=== PATIENT | female | born 1970 | race Caucasian/White ===

== ENCOUNTER → 2017-01-30 | Day surgery (SDC) | payer BC ==
[~2017-01-30] MED LIST: LIDOCAINE HCL 1% MPF SOL ONE; PROPOFOL 500 MG/50 ML EMU IV ONE
[2017-01-30 10:30] VITALS: BP 102/68; PULSE 73; RESP 18; TEMP 97.6; O2SAT 69
== END | disposition home or self-care (01) ==
LOC: SURG 08:23
PROVIDERS: ATTEND Surgery
DX: Z80.0 Family history of malignant neoplasm of digestive organs (principal); Z83.71 Family history of colonic polyps; R19.4 Change in bowel habit
CPT/HCPCS: 45378; J2001; J2704

== ENCOUNTER 2017-04-26 21:50 | Emergency (ER) | payer BC ==
[2017-04-26] MEDS ORDERED: SUMATRIPTAN SUCCINATE 6 MG/0.5 ML SOL SC ONE ×2 (22:15→22:21)
[2017-04-26 22:29] VITALS: BP 132/84; PULSE 79; RESP 18; TEMP 97.9; O2SAT 100
[2017-04-26] MEDS ORDERED: METOCLOPRAMIDE HYDROCHLORIDE 5 MG/ML SOL IV ONE (22:30)
[2017-04-26] MEDS ORDERED: KETOROLAC TROMETHAMINE 30 MG/ML SOL IV ONE (22:30)
[2017-04-26] MEDS ORDERED: SODIUM CHLORIDE 0.9% 1000ML 1,000 ML IV NR (22:30)
[2017-04-26] MEDS ORDERED: KETOROLAC TROMETHAMINE 30 MG/ML SOL ONE (22:42)
[2017-04-26] MEDS ORDERED: METOCLOPRAMIDE HYDROCHLORIDE 5 MG/ML SOL ONE (22:42)
[2017-04-26] MEDS ORDERED: SODIUM CHLORIDE 0.9% FLUSH 10 ML SOL IV PRN (22:51)
== END 2017-04-26 23:37 | disposition home or self-care (01) ==
LOC: ED 21:50
DX: G43.909 Migraine, unspecified, not intractable, without status migrainosus (principal)
CPT/HCPCS: 99284 ×2; J1885; J2765; J3030

== ENCOUNTER 2017-08-23 20:56 | Emergency (ER) | payer BC ==
[2017-08-23] MEDS ORDERED: NITROGLYCERIN 0.4 MG TAB SL PRN (21:04)
[2017-08-23] MEDS ORDERED: ASPIRIN 81 MG CHEWABLE CTB PO STA (21:04)
[2017-08-23] MEDS ORDERED: SODIUM CHLORIDE 0.9% FLUSH 10 ML SOL IV PRN (21:04)
[2017-08-23] MEDS ORDERED: ASPIRIN 81 MG CHEWABLE CTB ONE (21:05)
[2017-08-23] MEDS ORDERED: NITROGLYCERIN 0.4 MG TAB SL ONE (21:05)
[2017-08-23 21:07] LABS: BASOPHILS % (AUTO) 2 % (0-3); EOSINOPHILS % (AUTO) 4 % (0-9); HEMATOCRIT 41 % (35-47); MEAN CORPUSCULAR HGB CONC 34.9 gm/dl (32.0-36.0); MEAN CORPUSCULAR VOLUME 85 fL (81-99); MONOCYTES % (AUTO) 8.2 % (0-12); NEUTROPHILS % (AUTO) 47.9 % (37-80)
[2017-08-23 21:29] LABS: ALBUMIN 3.8 gm/dl (3.4-5.0); ALT 58 IU/L (14-63); CALCIUM 8.8 mg/dl (8.5-10.1); GLOM FILT RATE 60 mL/min (>60); SODIUM 130 mMol/L (136-145)
[2017-08-23] MEDS ORDERED: SODIUM CHLORIDE 0.9% 1000ML 1,000 ML IV ONE (21:37)
[2017-08-23] MEDS ORDERED: NOVOLOG FLEXPEN SC ONE ×2 (21:39→21:40)
[2017-08-23] MEDS ORDERED: LORAZEPAM 2 MG/ML SOL IV ONE (21:47)
[2017-08-23 21:52] VITALS: TEMP 98.4
[2017-08-23] MEDS ORDERED: AZITHROMYCIN 250 MG TAB PO ONE ×2 (21:53)
[2017-08-23] MEDS ORDERED: AZITHROMYCIN 250 MG TAB ONE (22:07)
[2017-08-23] MEDS ORDERED: LORAZEPAM 2 MG/ML SOL ONE (22:09)
[2017-08-23] MEDS ORDERED: NOVOLOG FLEXPEN SC SCH (22:30)
[2017-08-23] MEDS ORDERED: INSULIN GLARGINE, RECOMBINAN 100 U/ML SOL SC ONE ×2 (23:12→23:15)
[2017-08-23 23:29] VITALS: BP 130/68; PULSE 96; RESP 20; O2SAT 96
== END 2017-08-23 23:24 | disposition home or self-care (01) ==
LOC: ED 20:56
DX: R07.89 Other chest pain (principal); E11.65 Type 2 diabetes mellitus with hyperglycemia; Z79.4 Long term (current) use of insulin; J20.9 Acute bronchitis, unspecified
CPT/HCPCS: 99285 ×3; 80053; 84484; 85025; 93005; J1815; J1817; J2060; 71020

== ENCOUNTER 2018-01-23 13:44 | Outpatient (CLI) | payer BC ==
[2017-08-23 23:29] VITALS: O2SAT 96
[2018-01-23 15:27] LABS: CRP INFLAMMATORY 0.32 mg/dl (0.00-0.33); URIC ACID 5.8 mg/dl (2.6-7.2)
[2018-01-24 12:55] LABS: *LYME DISEASE SCREEN Negative (Negative)
[2018-01-25 17:24] LABS: *ANA SCREEN 1.6 U
[2018-01-25 17:25] LABS: *CYCLIC CITRULLINATE PEPTIDE <15.6 U
== END 2018-01-23 13:45 | disposition home or self-care (01) ==
LOC: CONVCARE 13:44
PROVIDERS: ATTEND Orthopaedic Surgery
DX: M79.642 Pain in left hand (principal); M79.641 Pain in right hand
CPT/HCPCS: 36415; 73030; 73070; 73130; 84550; 85651

== ENCOUNTER 2018-11-26 07:52 | Emergency (ER) | payer SELFPAY ==
[2018-11-26 07:57] VITALS: BP 111/72; PULSE 87; RESP 16; TEMP 97.3; O2SAT 98
[2018-11-26 08:30] LABS: BASOPHILS % (AUTO) 1 % (0-3); EOSINOPHILS % (AUTO) 5 % (0-9); HEMATOCRIT 41 % (35-47); HEMOGLOBIN 13.9 gm/dl (12.0-15.5); LYMPHOCYTES % (AUTO) 31.3 % (10-50); MEAN CORPUSCULAR HEMOGLOBIN 29.4 pg (27.0-32.0); MEAN CORPUSCULAR VOLUME 87 fL (81-99); MONOCYTES % (AUTO) 5.4 % (0-12); NEUTROPHILS % (AUTO) 57.5 % (37-80)
[2018-11-26 08:45] LABS: ALBUMIN 3.4 gm/dl (3.4-5.0); BILIRUBIN,TOTAL 0.5 mg/dl (0.2-1.0); CALCIUM 8.4 mg/dl (8.5-10.1); CARBON DIOXIDE 29.4 mEq/L (21-32); CREATININE 0.95 mg/dl (0.60-1.00); POTASSIUM 4.3 mMol/L (3.5-5.1); TOTAL PROTEIN 6.5 gm/dl (6.4-8.2)
== END 2018-11-26 09:57 | disposition home or self-care (01) | DRG 563 ==
LOC: ED 07:52
DX: M23.91 Unspecified internal derangement of right knee (principal); E11.9 Type 2 diabetes mellitus without complications; M25.561 Pain in right knee
CPT/HCPCS: 36415; 73562; 80053; 85025; 85378; 99283